=== PATIENT | male | born 1950 ===

== ENCOUNTER 2022-06-16 02:16 | Outpatient (RCR) | payer OTHER, SELFPAY ==
[2022-06-09 10:11] LABS: Abs Immature Grans 0.02 10^3/uL (0.0-0.06); Absolute Basophil Count 0.03 10^3/uL (0.0-0.2); Absolute Eosinophil Count 0.09 10^3/uL (0.0-0.7); Absolute Lymphocyte Count 0.45 10^3/uL (1.2-3.4); Absolute Monocyte Count 0.47 10^3/uL (0.1-0.8); Absolute Neutrophil Count 0.88 10^3/uL (1.2-6.7); Basophils % 1.5; Eosinophils % 4.6; HCT 34.5 % (40.0-50.0); HGB 11.8 g/dL (13.5-17.5); Lymphocytes % 23.2; MCH 33.4 pg (27.0-33.0); MCHC 34.2 % (32.0-36.0); MCV 98 fL (80-95); MPV 9.6 fL (8.0-11.0); Monocytes % 24.2; Neutrophils % 45.5; Platelet Count 174 10^3/uL (130-400); RBC 3.53 10^6/uL (4.36-5.78); RDW 15.6 % (11.8-14.1); RDW-SD 56.1 fL
[2022-06-09] MEDS: Normal Saline-STERILE FIELD 0.9% 10 ML SYR (10:11)
[2022-06-09] MEDS: Heparin 500 UNITS/5 ML SYRINGE IV (10:11)
[2022-06-09 10:24] LABS: WBC 1.94 10^3/uL (4.4-10.8)
[2022-06-09 10:27] LABS: ALT 34 U/L (16-63); AST 33 U/L (15-37); Albumin 3.8 g/dL (3.4-5.0); Alkaline Phosphatase 89 U/L (46-116); Anion Gap 4.9 mmol/L (3-11); BUN 14 mg/dL (7-18); Bilirubin, Total 0.7 mg/dL (0.2-1.0); CO2 31.1 mmol/L (21.0-32.0); CREATININE 0.9 mg/dL (0.70-1.30); Calcium 9.4 mg/dL (8.5-10.1); Chloride 101 mmol/L (98-107); Glucose 117 mg/dL (74-106); Potassium 4.1 mmol/L (3.5-5.1); Sodium 137 mmol/L (136-145); Total Protein 7.9 g/dL (6.4-8.2)
[2022-06-09 10:34] LABS: Diff Comment Diff Reviewed; RBC Morphology Normal
[2022-06-16 10:24] LABS: Abs Immature Grans 0.03 10^3/uL (0.0-0.06); HCT 35.6 % (40.0-50.0); HGB 12.3 g/dL (13.5-17.5); MCH 33.3 pg (27.0-33.0); MCHC 34.6 % (32.0-36.0); MCV 97 fL (80-95); Platelet Count 190 10^3/uL (130-400); RBC 3.69 10^6/uL (4.36-5.78); RDW 14.9 % (11.8-14.1); RDW-SD 53.3 fL
[2022-06-16 10:38] LABS: ALT 34 U/L (16-63); AST 33 U/L (15-37); Albumin 3.7 g/dL (3.4-5.0); Alkaline Phosphatase 81 U/L (46-116); Anion Gap 7.7 mmol/L (3-11); BUN 17 mg/dL (7-18); Bilirubin, Total 0.7 mg/dL (0.2-1.0); CO2 27.3 mmol/L (21.0-32.0); CREATININE 0.9 mg/dL (0.70-1.30); Chloride 103 mmol/L (98-107); Glucose 99 mg/dL (74-106); Potassium 4.2 mmol/L (3.5-5.1); Sodium 138 mmol/L (136-145); Total Protein 7.6 g/dL (6.4-8.2)
[2022-06-16] MEDS: Heparin 500 UNITS/5 ML SYRINGE IV (10:48)
[2022-06-16] MEDS: Normal Saline-STERILE FIELD 0.9% 10 ML SYR IVP (10:49)
[2022-06-16 10:57] LABS: Absolute Lymphocyte Count 0.51 10^3/uL (1.2-3.4); Absolute Neutrophil Count 0.66 10^3/uL (1.2-6.7)
[2022-06-16 10:58] LABS: Absolute Eosinophil Count 0.03 10^3/uL (0.0-0.7); Absolute Monocyte Count 0.35 10^3/uL (0.1-0.8); Diff Comment Manual Differential; Metamyelocytes % 1; Myelocytes % 2; RBC Morphology Normal
== END 2022-06-23 23:59 | disposition home or self-care (01) ==
LOC: INF 02:16
PROVIDERS: PCP Family Medicine; Visit Provider Internal Medicine Hematology & Oncology
DX: C83.38 Diffuse large B-cell lymphoma, lymph nodes of multiple sites (principal); Z45.2 Encounter for adjustment and management of vascular access device
CPT/HCPCS: 36591; 80053; 85025

== ENCOUNTER 2022-09-27 03:48 | Outpatient (RCR) | payer OTHER, SELFPAY ==
[2022-09-27] MEDS: Normal Saline-STERILE FIELD 0.9% 10 ML SYR (12:57)
[2022-09-27] MEDS: Heparin 500 UNITS/5 ML SYRINGE IV (12:57)
[2022-09-27 13:11] LABS: Abs Immature Grans 0.11 10^3/uL (0.0-0.06); Absolute Basophil Count 0.04 10^3/uL (0.0-0.2); Absolute Eosinophil Count 0.03 10^3/uL (0.0-0.7); Absolute Lymphocyte Count 0.69 10^3/uL (1.2-3.4); Absolute Monocyte Count 0.72 10^3/uL (0.1-0.8); Absolute Neutrophil Count 2.05 10^3/uL (1.2-6.7); Basophils % 1.1; Eosinophils % 0.8; HCT 34.2 % (40.0-50.0); HGB 11.7 g/dL (13.5-17.5); MCH 34.6 pg (27.0-33.0); MCHC 34.2 % (32.0-36.0); MCV 101 fL (80-95); MPV 10.8 fL (8.0-11.0); Monocytes % 19.8; Neutrophils % 56.3; Platelet Count 101 10^3/uL (130-400); RBC 3.38 10^6/uL (4.36-5.78); RDW 14.6 % (11.8-14.1); RDW-SD 54.1 fL; WBC 3.64 10^3/uL (4.4-10.8)
[2022-09-27 13:24] LABS: ALT 21 U/L (16-63); AST 27 U/L (15-37); Albumin 3.9 g/dL (3.4-5.0); Alkaline Phosphatase 87 U/L (46-116); BUN 21 mg/dL (7-18); Bilirubin, Total 0.8 mg/dL (0.2-1.0); Calcium 8.8 mg/dL (8.5-10.1); Chloride 106 mmol/L (98-107); Estimated GFR 79.47 (mL/min/1.73m2); Glucose 118 mg/dL (74-106); LDH 274 U/L (85-227); Potassium 4.1 mmol/L (3.5-5.1); Sodium 139 mmol/L (136-145)
== END 2022-10-23 23:59 | disposition home or self-care (01) ==
LOC: INF 03:48
PROVIDERS: Internal Medicine Hematology & Oncology; PCP Family Medicine; Visit Provider Nurse Practitioner Family
DX: C83.38 Diffuse large B-cell lymphoma, lymph nodes of multiple sites (principal); Z45.2 Encounter for adjustment and management of vascular access device; Z94.81 Bone marrow transplant status
CPT/HCPCS: 36591; 80053; 83615; 85025

== ENCOUNTER 2022-11-22 02:42 | Outpatient (RCR) | payer MEDICARE, SELFPAY ==
[2022-11-01 11:17] LABS: Abs Immature Grans 0.02 10^3/uL (0.0-0.06); Absolute Basophil Count 0.03 10^3/uL (0.0-0.2); Absolute Eosinophil Count 0.01 10^3/uL (0.0-0.7); Absolute Lymphocyte Count 0.47 10^3/uL (1.2-3.4); Absolute Monocyte Count 0.58 10^3/uL (0.1-0.8); Absolute Neutrophil Count 1.57 10^3/uL (1.2-6.7); Basophils % 1.1; Eosinophils % 0.4; HGB 10.8 g/dL (13.5-17.5); Immature Grans % 0.7; Lymphocytes % 17.5; MCHC 33.8 % (32.0-36.0); MCV 101 fL (80-95); MPV 10.5 fL (8.0-11.0); Monocytes % 21.6; Neutrophils % 58.7; Platelet Count 101 10^3/uL (130-400); RBC 3.18 10^6/uL (4.36-5.78); RDW 13.2 % (11.8-14.1); RDW-SD 49.7 fL; WBC 2.68 10^3/uL (4.4-10.8)
[2022-11-01 11:30] LABS: ALT 23 U/L (16-63); AST 28 U/L (15-37); Albumin 3.9 g/dL (3.4-5.0); Alkaline Phosphatase 97 U/L (46-116); Anion Gap 7.6 mmol/L (3-11); BUN 24 mg/dL (7-18); Bilirubin, Total 0.5 mg/dL (0.2-1.0); CO2 25.4 mmol/L (21.0-32.0); CREATININE 0.9 mg/dL (0.70-1.30); Calcium 8.9 mg/dL (8.5-10.1); Chloride 104 mmol/L (98-107); Estimated GFR 90.18 (mL/min/1.73m2); Glucose 91 mg/dL (74-106); LDH 235 U/L (85-227); Potassium 4.1 mmol/L (3.5-5.1); Sodium 137 mmol/L (136-145); Total Protein 6.8 g/dL (6.4-8.2)
[2022-11-01] MEDS: Normal Saline-STERILE FIELD 0.9% 10 ML SYR (11:30)
[2022-11-01] MEDS: Heparin 500 UNITS/5 ML SYRINGE (11:30)
[2022-11-08] MEDS: Heparin 500 UNITS/5 ML SYRINGE IV (10:15)
[2022-11-08] MEDS: Normal Saline-STERILE FIELD 0.9% 10 ML SYR (10:15)
[2022-11-08 10:22] LABS: HCT 28.6 % (40.0-50.0); HGB 9.7 g/dL (13.5-17.5); MCH 34.3 pg (27.0-33.0); MCHC 33.9 % (32.0-36.0); MCV 101 fL (80-95); MPV 9.9 fL (8.0-11.0); RBC 2.83 10^6/uL (4.36-5.78); RDW 13.2 % (11.8-14.1)
[2022-11-08 10:38] LABS: WBC 1.86 10^3/uL (4.4-10.8)
[2022-11-08 10:40] LABS: ALT 22 U/L (16-63); AST 28 U/L (15-37); Alkaline Phosphatase 86 U/L (46-116); Anion Gap 7.1 mmol/L (3-11); BUN 24 mg/dL (7-18); Bilirubin, Total 0.6 mg/dL (0.2-1.0); CO2 25.9 mmol/L (21.0-32.0); CREATININE 1.1 mg/dL (0.70-1.30); Calcium 8.9 mg/dL (8.5-10.1); Chloride 103 mmol/L (98-107); Estimated GFR 70.88 (mL/min/1.73m2); Glucose 116 mg/dL (74-106); LDH 231 U/L (85-227); Potassium 4.3 mmol/L (3.5-5.1); Sodium 136 mmol/L (136-145)
[2022-11-08 11:35] LABS: Absolute Lymphocyte Count 0.48 10^3/uL (1.2-3.4); Absolute Monocyte Count 0.47 10^3/uL (0.1-0.8); Absolute Neutrophil Count 0.91 10^3/uL (1.2-6.7); Bands % 7
[2022-11-08 11:36] LABS: Diff Comment Manual Differential
[2022-11-08 11:37] LABS: Poikilocytes 2+
[2022-11-08 11:38] LABS: Platelet Count 96 10^3/uL (130-400)
[2022-11-15] MEDS: Normal Saline-STERILE FIELD 0.9% 10 ML SYR (10:15)
[2022-11-15] MEDS: Heparin 500 UNITS/5 ML SYRINGE IV (10:16)
[2022-11-15 10:24] LABS: Abs Immature Grans 0.72 10^3/uL (0.0-0.06); Absolute Basophil Count 0.07 10^3/uL (0.0-0.2); Absolute Eosinophil Count 0.06 10^3/uL (0.0-0.7); Absolute Lymphocyte Count 0.64 10^3/uL (1.2-3.4); Absolute Monocyte Count 2.28 10^3/uL (0.1-0.8); Absolute Neutrophil Count 1.85 10^3/uL (1.2-6.7); Basophils % 1.2; Eosinophils % 1.1; HCT 32.9 % (40.0-50.0); HGB 11.2 g/dL (13.5-17.5); Immature Grans % 12.8; Lymphocytes % 11.4; MCH 34.1 pg (27.0-33.0); MCV 100 fL (80-95); MPV 10.8 fL (8.0-11.0); Monocytes % 40.6; RBC 3.28 10^6/uL (4.36-5.78); RDW 13.3 % (11.8-14.1); RDW-SD 49.4 fL; WBC 5.62 10^3/uL (4.4-10.8)
[2022-11-15 10:42] LABS: Platelet Count 75 10^3/uL (130-400)
[2022-11-15 10:43] LABS: Diff Comment Agrees w/ Instrument; Neutrophils % 32.9; RBC Morphology Normal
[2022-11-15 10:44] LABS: ALT 21 U/L (16-63); AST 33 U/L (15-37); Alkaline Phosphatase 100 U/L (46-116); BUN 18 mg/dL (7-18); Bilirubin, Total 0.9 mg/dL (0.2-1.0); CREATININE 1.1 mg/dL (0.70-1.30); Calcium 9.2 mg/dL (8.5-10.1); Chloride 103 mmol/L (98-107); Estimated GFR 70.88 (mL/min/1.73m2); Glucose 92 mg/dL (74-106); LDH 305 U/L (85-227); Sodium 138 mmol/L (136-145); Total Protein 6.7 g/dL (6.4-8.2)
[2022-11-22] MEDS: Heparin 500 UNITS/5 ML SYRINGE IV (09:54)
[2022-11-22] MEDS: Normal Saline-STERILE FIELD 0.9% 10 ML SYR (09:55)
[2022-11-22 09:59] LABS: Abs Immature Grans 0.16 10^3/uL (0.0-0.06); Absolute Basophil Count 0.03 10^3/uL (0.0-0.2); Absolute Eosinophil Count 0.03 10^3/uL (0.0-0.7); Absolute Monocyte Count 0.67 10^3/uL (0.1-0.8); Absolute Neutrophil Count 6.13 10^3/uL (1.2-6.7); Basophils % 0.4; Eosinophils % 0.4; HCT 35.7 % (40.0-50.0); HGB 12.2 g/dL (13.5-17.5); Lymphocytes % 10.2; MCH 34.3 pg (27.0-33.0); MCHC 34.2 % (32.0-36.0); MCV 100 fL (80-95); Monocytes % 8.6; Neutrophils % 78.4; Platelet Count 117 10^3/uL (130-400); RBC 3.56 10^6/uL (4.36-5.78); RDW 14.1 % (11.8-14.1); RDW-SD 52.1 fL; WBC 7.82 10^3/uL (4.4-10.8)
[2022-11-22 10:24] LABS: ALT 27 U/L (16-63); AST 31 U/L (15-37); Albumin 4.1 g/dL (3.4-5.0); Alkaline Phosphatase 119 U/L (46-116); Anion Gap 9.5 mmol/L (3-11); BUN 14 mg/dL (7-18); Bilirubin, Total 0.6 mg/dL (0.2-1.0); CO2 25.5 mmol/L (21.0-32.0); CREATININE 1.1 mg/dL (0.70-1.30); Calcium 9.2 mg/dL (8.5-10.1); Chloride 105 mmol/L (98-107); Estimated GFR 70.88 (mL/min/1.73m2); Glucose 136 mg/dL (74-106); LDH 261 U/L (85-227); Potassium 3.9 mmol/L (3.5-5.1); Sodium 140 mmol/L (136-145)
== END 2022-11-23 23:59 | disposition home or self-care (01) ==
LOC: INF 02:42
PROVIDERS: Internal Medicine Hematology & Oncology; PCP Family Medicine; Visit Provider Nurse Practitioner Family
DX: C83.38 Diffuse large B-cell lymphoma, lymph nodes of multiple sites (principal); Z45.2 Encounter for adjustment and management of vascular access device
CPT/HCPCS: 36591; 80053; 83615; 85025

== ENCOUNTER 2022-11-29 02:21 | Outpatient (RCR) | payer MEDICARE, SELFPAY ==
[2022-11-29] MEDS: Normal Saline-STERILE FIELD 0.9% 10 ML SYR (07:14)
[2022-11-29] MEDS: Heparin 500 UNITS/5 ML SYRINGE (07:14)
[2022-11-29 07:37] LABS: Abs Immature Grans 0.03 10^3/uL (0.0-0.06); Absolute Basophil Count 0.04 10^3/uL (0.0-0.2); Absolute Eosinophil Count 0.05 10^3/uL (0.0-0.7); Absolute Lymphocyte Count 0.66 10^3/uL (1.2-3.4); Absolute Monocyte Count 0.74 10^3/uL (0.1-0.8); Absolute Neutrophil Count 2.81 10^3/uL (1.2-6.7); Basophils % 0.9; Eosinophils % 1.2; HCT 29.6 % (40.0-50.0); Immature Grans % 0.7; Lymphocytes % 15.2; MCH 34.4 pg (27.0-33.0); MCHC 33.8 % (32.0-36.0); MCV 102 fL (80-95); MPV 10.4 fL (8.0-11.0); Monocytes % 17.1; Neutrophils % 64.9; Platelet Count 113 10^3/uL (130-400); RBC 2.91 10^6/uL (4.36-5.78); RDW 14.2 % (11.8-14.1); RDW-SD 53.6 fL; WBC 4.33 10^3/uL (4.4-10.8)
[2022-11-29 07:52] LABS: ALT 27 U/L (16-63); AST 28 U/L (15-37); Alkaline Phosphatase 127 U/L (46-116); Anion Gap 9.1 mmol/L (3-11); BUN 23 mg/dL (7-18); Bilirubin, Total 0.5 mg/dL (0.2-1.0); CO2 24.9 mmol/L (21.0-32.0); CREATININE 0.9 mg/dL (0.70-1.30); Chloride 105 mmol/L (98-107); Estimated GFR 90.18 (mL/min/1.73m2); Glucose 110 mg/dL (74-106); LDH 168 U/L (85-227); Potassium 4.1 mmol/L (3.5-5.1); Sodium 139 mmol/L (136-145); Total Protein 6.6 g/dL (6.4-8.2)
== END 2022-12-21 23:59 | disposition home or self-care (01) ==
LOC: INF 02:21
PROVIDERS: Internal Medicine Hematology & Oncology; PCP Family Medicine; Visit Provider Nurse Practitioner Family
DX: C83.38 Diffuse large B-cell lymphoma, lymph nodes of multiple sites (principal); Z45.2 Encounter for adjustment and management of vascular access device
CPT/HCPCS: 36591; 80053; 83615; 85025

== ENCOUNTER 2023-01-03 02:58 | Outpatient (RCR) | payer MEDICARE, SELFPAY ==
[2023-01-03 07:56] LABS: Abs Immature Grans 0.01 10^3/uL (0.0-0.06); Absolute Basophil Count 0.01 10^3/uL (0.0-0.2); Absolute Eosinophil Count 0.04 10^3/uL (0.0-0.7); Absolute Lymphocyte Count 0.53 10^3/uL (1.2-3.4); Absolute Monocyte Count 0.48 10^3/uL (0.1-0.8); Absolute Neutrophil Count 1.73 10^3/uL (1.2-6.7); Basophils % 0.4; Eosinophils % 1.4; HCT 28.9 % (40.0-50.0); HGB 9.9 g/dL (13.5-17.5); Immature Grans % 0.4; Lymphocytes % 18.9; MCH 34.7 pg (27.0-33.0); MCHC 34.3 % (32.0-36.0); MCV 101 fL (80-95); MPV 10.2 fL (8.0-11.0); Monocytes % 17.1; Neutrophils % 61.8; Platelet Count 104 10^3/uL (130-400); RBC 2.85 10^6/uL (4.36-5.78); RDW-SD 52.5 fL
[2023-01-03 08:09] LABS: ALT 36 U/L (16-63); AST 31 U/L (15-37); Albumin 3.9 g/dL (3.4-5.0); Alkaline Phosphatase 110 U/L (46-116); Anion Gap 7.4 mmol/L (3-11); BUN 20 mg/dL (7-18); Bilirubin, Total 0.5 mg/dL (0.2-1.0); CO2 27.6 mmol/L (21.0-32.0); CREATININE 1.1 mg/dL (0.70-1.30); Calcium 8.9 mg/dL (8.5-10.1); Chloride 104 mmol/L (98-107); Estimated GFR 70.88 (mL/min/1.73m2); Glucose 104 mg/dL (74-106); LDH 167 U/L (85-227); Potassium 4.3 mmol/L (3.5-5.1); Sodium 139 mmol/L (136-145); Total Protein 6.7 g/dL (6.4-8.2)
== END 2023-01-21 23:59 | disposition home or self-care (01) ==
LOC: INF 02:58
PROVIDERS: PCP Family Medicine; Visit Provider Nurse Practitioner Family
DX: C83.38 Diffuse large B-cell lymphoma, lymph nodes of multiple sites (principal)
CPT/HCPCS: 36415; 80053; 83615; 85025